=== PATIENT | male | born 1975 | race American Indian/Alaskan Native ===

== ENCOUNTER 2016-06-12 19:17 | Emergency (ER) | payer MEDICARE ==
[2016-06-12 21:30] LABS: Basophils % (Auto) 0.3 % (0.0-1.8); Eosinophils % (Auto) 0.2 % (0.0-4.3); Hemoglobin 15.5 gm/dl (11.8-15.2); Mean Corpuscular HGB Conc 33 % (32-34); Mean Corpuscular Hemoglobin 30 pg (28-32); Mean Corpuscular Volume 91 fl (84-94); Platelet Count 155 K/mm3 (140-440); Red Cell Distribution Width 13.6 % (13.2-15.2); White Blood Count 9.5 K/mm3 (4.5-11.0)
[2016-06-12 21:44] LABS: Alanine Aminotransferase 52 units/L (7-56); Albumin 4.2 g/dL (3.9-5); Albumin/Globulin Ratio 0.8 %; Alkaline Phosphatase 110 units/L (35-129); Anion Gap 24 mmol/L; Bilirubin,Total 1.6 mg/dL (0.1-1.2); Blood Urea Nitrogen 9 mg/dL (9-20); Calcium 9.4 mg/dL (8.4-10.2); Carbon Dioxide 22 mmol/L (22-30); Chloride 93.6 mmol/L (98-107); Glucose 393 mg/dL (75-100); Potassium 4.4 mmol/L (3.6-5.0); Sodium 135 mmol/L (137-145); Total Protein 9.4 g/dL (6.3-8.2)
--- NOTE | 2016-06-13 06:56 | Emergency Department Report ---
ED Abdominal Pain HPI - General Chief Complaint: Abdominal Pain Stated Complaint: INGUINAL LUMP Time Seen by Provider: 06/13/16 06:36 Source: patient Mode of arrival: Ambulatory Limitations: No Limitations - History of Present Illness Initial Comments: 40-year-old male presents to the emergency department complaining of a painful swelling in his right lower abdomen. The swollen area has been present for approximately one week. Patient states he has no pain when he is lying down. Whenever he sits up or tries to walk, he reports an aching pain in the area. He denies nausea, vomiting, diarrhea, constipation, or urinary complaints. Patient states he is currently on disability and has not lifted any heavy items recently. There are no other complaints. MD Complaint: abdominal pain -: Gradual, week(s) (1) Location: RLQ (inguinal) Radiation: none Migration to: no migration Severity: severe Severity scale (0 -10): 9 Quality: aching Consistency: intermittent Improves With: rest Worsens With: movement Associated Symptoms: denies other symptoms - Related Data Previous Rx's Medication Instructions Recorded Last Taken Type Cephalexin [Keflex] 500 mg PO TID #30 capsule 06/13/16 Unknown Rx HYDROcodone/APAP 5-325 [Wilmer 1 each PO Q6HR PRN #20 tablet 06/13/16 Unknown Rx 5/325] Allergies Allergy/AdvReac Type Severity Reaction Status Date / Time No Known Allergies Allergy Unverified 06/12/16 20:36 ED Review of Systems ROS: Stated complaint: INGUINAL LUMP Other details as noted in HPI Comment: All other systems reviewed and negative Gastrointestinal: as per HPI, abdominal pain ED Past Medical Hx - Past Medical History Previous Medical History?: Yes Hx Hypertension: Yes Additional medical history: bi-polar - Surgical History Past Surgical History?: No - Family History Family history: no significant - Social History Smoking Status: Never Smoker Substance Use Type: None - Medications Home Medications: Home Medications Medication Instructions Recorded Confirmed Last Taken Type Cephalexin [Keflex] 500 mg PO TID #30 capsule 06/13/16 Unknown Rx HYDROcodone/APAP 5-325 [Wilmer 1 each PO Q6HR PRN #20 tablet 06/13/16 Unknown Rx 5/325] ED Physical Exam - General Limitations: No Limitations General appearance: alert, in no apparent distress - Head Head exam: Present: atraumatic, normocephalic - Eye Eye exam: Present: normal appearance, PERRL, EOMI - ENT ENT exam: Present: normal exam, normal orophraynx, mucous membranes moist - Neck Neck exam: Present: normal inspection, full ROM. Absent: tenderness - Respiratory Respiratory exam: Present: normal lung sounds bilaterally. Absent: respiratory distress - Cardiovascular Cardiovascular Exam: Present: normal rhythm, tachycardia, normal heart sounds - GI/Abdominal GI/Abdominal exam: Present: soft, tenderness, normal bowel sounds, hernia ( right inguinal hernia noted. No overlying erythema. Area is mildly tender to palpation.). Absent: distended - Extremities Exam Extremities exam: Present: normal inspection, full ROM. Absent: tenderness - Back Exam Back exam: Present: normal inspection, full ROM. Absent: tenderness - Neurological Exam Neurological exam: Present: alert, oriented X3. Absent: motor sensory deficit - Skin Skin exam: Present: warm, dry, intact ED Course Vital Signs 06/12/16 06/13/16 06/13/16 20:31 00:19 05:30 Temperature 98.1 F 99.1 F 98.7 F Pulse Rate 103 H 117 H 84 Respiratory 18 18 16 Rate Blood Pressure 129/89 156/96 Blood Pressure 150/88 [Left] O2 Sat by Pulse 100 96 99 Oximetry 06/13/16 06/13/16 06/13/16 07:19 07:24 08:06 Temperature 98.8 F Pulse Rate 122 H 113 H 118 H Respiratory 18 Rate Blood Pressure Blood Pressure 126/84 [Left] O2 Sat by Pulse 100 Oximetry ED Medical Decision Making - Lab Data Result diagrams: 06/12/16 21:11 06/12/16 21:11 - Radiology Data Radiology results: report reviewed, image reviewed interpreted by me: CT of the abdomen and pelvis shows soft tissue thickening in the right inguinal skin. No evidence of hernia. CT of abdomen and pelvis is read as normal by radiology. - Medical Decision Making Lab and imaging results reviewed and discussed with the patient. Patient will be treated with oral anti-biotics and discharged home to follow up with his primary care physician. - Differential Diagnosis inguinal hernia, incarcerated hernia Critical care attestation.: If time is entered above; I have spent that time in minutes in the direct care of this critically ill patient, excluding procedure time. ED Disposition Clinical Impression: Cellulitis of groin, right Disposition: DISCHARGED TO HOME OR SELFCARE Is pt being admited?: No Condition: Stable Instructions: Cellulitis (ED) Prescriptions: Cephalexin [Keflex] 500 mg PO TID #30 capsule HYDROcodone/APAP 5-325 [Wilmer 5/325] 1 each PO Q6HR PRN #20 tablet PRN Reason: Pain Referrals: PRIMARY CARE, [Primary Care Provider] - 3-5 Days Time of Disposition: 08:48
[2016-06-13] MEDS: NORCO 5/325 PO ONE ×2 (07:14→07:18)
[2016-06-13 07:20] VITALS: BP 126/84
--- NOTE | 2016-06-13 08:23 | Cat Scan Report ---
CT OF THE ABDOMEN AND PELVIS WITHOUT CONTRAST HISTORY: Right lower quadrant pain, pelvic pain. TECHNIQUE: Helical CT without contrast. Sagittal and coronal reformatted images. FINDINGS: Within the limits of a noncontrast exam, the abdominal and pelvic viscera are within normal limits. The liver, biliary system, pancreas, spleen, kidneys, adrenal glands and bladder are unremarkable. The bowel loops are normal caliber and wall thickness. Normal appendix. The aorta is normal caliber. No ascites, bulky adenopathy or inflammatory changes. The lung bases are clear. Normal heart size. No suspicious bony lesion. IMPRESSION: Unremarkable noncontrast CT of the abdomen and pelvis.
[2016-06-13] MEDS ORDERED: ZOFRAN ONE (09:33)
== END 2016-06-14 07:00 | disposition home or self-care (01) ==
LOC: ED 19:17
DX: L03.314 Cellulitis of groin (principal); I10 Essential (primary) hypertension; F31.9 Bipolar disorder, unspecified
CPT/HCPCS: 36415; 74176; 80053; 85025; J2405